=== PATIENT | female | born 1995 | race Two or more races ===

== ENCOUNTER 2021-06-02 14:21 | Emergency (ER) | payer OTHER ==
[~2021-06-02] VITALS: Ht 165.1 cm; Wt 83.9 kg
[2021-06-02] MEDS ORDERED: MACRODANTIN100 M1 PO (18:08)
== END 2021-06-02 18:22 | disposition home or self-care (01) ==
LOC: ER 14:21
DX: O23.92 Unspecified genitourinary tract infection in pregnancy, second trimester (principal); Z3A.15 15 weeks gestation of pregnancy